=== PATIENT | female | born 1985 | race Caucasian/White ===

== ENCOUNTER 2018-02-07 06:00 | Inpatient (IN) | payer OTHER ==
[2018-02-07] MEDS ORDERED: LIDOCAINE 1% 300 MG/30 ML SDV SC PRN (06:33)
[2018-02-07] MEDS ORDERED: IBUPROFEN 600 MG TAB PO PRN (06:33)
[2018-02-07] MEDS ORDERED: OLIVE OIL 118 ML BTL MISC PRN (06:33)
[2018-02-07] MEDS ORDERED: TERBUTALINE SULFATE 1 MG/ML VIAL IV PRN (06:33)
[2018-02-07] MEDS ORDERED: EPSOM SALT 454 GM TP PRN (06:33)
[2018-02-07] MEDS ORDERED: AMPICILLIN SODIUM 2 GM in NS 100 ML IV ONE (06:33)
[2018-02-07] MEDS ORDERED: OXYTOCIN/RINGERS LACTATE 1,000 ML IV PRN (06:33)
[2018-02-07] MEDS ORDERED: MISOPROSTOL 200 MCG TAB PR PRN (06:33)
[2018-02-07 06:51] LABS: PLATELET COUNT 198 10^3/uL (150-400)
[2018-02-07] MEDS ORDERED: PENICILLIN POTASSIUM IV ONE (07:00)
[2018-02-07] MEDS ORDERED: OXYTOCIN/LR *STANDARD DOSE PROTOCOL IV SCH (07:00)
[2018-02-07] MEDS ORDERED: D5W IV ONE (07:00)
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
[2018-02-07] MEDS: LR 1,000 ML IV PRN ×2 (08:03→22:20)
[2018-02-07] MEDS ORDERED: LR 500 ML IV PRN (08:50)
[2018-02-07] MEDS ORDERED: AMPICILLIN SODIUM 1 GM in NS 100 ML IV SCH (10:30)
[2018-02-07] MEDS: D5W IV SCH ×3 (12:03→20:25)
[2018-02-07] MEDS: PENICILLIN POTASSIUM IV SCH ×3 (12:03→20:25)
[2018-02-07] MEDS ORDERED: AMMONIA AROMATIC 1 EACH AMP IH ONE (14:25)
[2018-02-07] MEDS ORDERED: OLIVE OIL 118 ML BTL ONE (14:25)
[2018-02-07] MEDS ORDERED: LIDOCAINE 1% 300 MG/30 ML SDV ONE (14:25)
[2018-02-07] MEDS ORDERED: TERBUTALINE SULFATE 1 MG/ML VIAL ONE (14:25)
[2018-02-07] MEDS ORDERED: OXYTOCIN 10 UNIT/ML VIAL ONE (14:26)
[2018-02-07] MEDS ORDERED: MISOPROSTOL 200 MCG TAB ONE (14:26)
[2018-02-07] MEDS ORDERED: fentaNYL 2MCG/ML/BUP 0.1% RTU 100 ML BAG EP ONE (17:17)
[2018-02-07] MEDS ORDERED: PHENYLEPHRINE HCL 100 MCG/ML SYR ONE (17:18)
[2018-02-07] MEDS ORDERED: BUPIVACAINE 0.25% 30 ML SDV ONE (17:18)
[2018-02-07] MEDS ORDERED: fentaNYL 100 MCG/2 ML INJ ONE (17:18)
[2018-02-07] MEDS ORDERED: ONDANSETRON 4 MG/2 ML VIAL IVP PRN (18:24)
--- NOTE | 2018-02-07 18:26 | POSTANESTH ---
Post Anesthetic Evaluation Cardiovascular Status: Normal, Stable, Similar to Pre-Op Cond Respiratory Status: Normal, Stable, Similar to Pre-op Cond. Level of Consciousness/Mental Status: Can Participate in Eval, Alert and Oriented Pain Control: Adequate, Prn Tx Ordered Nausea/Vomiting Control: Adequate, Prn Tx Ordered Complications Possibly Related to Anesthesia: None Noted
--- NOTE | 2018-02-07 18:29 | PREANESOB ---
Obstetric Pre-Anesthesia Info - General Info Proposed Procedure: Labor and delivery with pitocin. : 1 Para: 0 GEE: 02/01/18 Gestational Age: 40 week(s) and 6 day(s) - Info Status: Postmature Monitors: External FHR Baseline (bpm): 140 FHR Pattern: Reassuring - Labor Status Cervical Dilation per last OB SVE: 5 Pitocin: In Use Indications for Labor Analgesia: Induction of Labor, Pain Control Labor Epidural: Proposed Anesthesia ROS: [place] teeth. Allergies/Adverse Reactions: Allergy/AdvReac Type Severity Reaction Status Date / Time No Known Allergies Allergy Unverified 02/07/18 06:27 Home Medications: Medication Instructions Recorded Vit27&Calcium/Iron/FA 1 tab PO DAILY 02/07/18 [] Visit Medications: Generic Name Dose Route Start Last Admin Trade Name Freq PRN Reason Stop Dose Admin Diphenhydramine HCl 25 - 50 mg 02/07/18 18:24 Benadryl Injection IVP 08/06/18 18:23 Q6HRS PRN Itching Lactated Ringer's 1,000 mls @ 0 mls/hr 02/07/18 06:33 02/07/18 08:03 Lr IV 02/08/18 06:32 1,000 mls PRN PRN Administration SEE PROTOCOL CONDITIONS Protocol Per Protocol Oxytocin/Lactated Ringer's 1,000 mls @ 125 mls/hr 02/07/18 06:33 Pitocin 20 Units/Lr (Premix) IV PRN PRN Post bleeding Penicillin G Potassium 2,500, 105 mls @ 105 mls/hr 02/07/18 11:00 02/07/18 16 :21 000 unit/ Dextrose IV 03/09/18 10:59 105 mls Q4H MARYCARMEN Administration Oxytocin/Lactated Ringer's 500 mls @ 0 mls/hr 02/07/18 07:00 02/07/18 08:03 Pitocin 30 Units/Lr (Premix) IV 08/06/18 06:59 500 mls CONT MARYCARMEN Administration Protocol Per Protocol Lactated Ringer's 500 mls @ 500 mls/hr 02/07/18 08:50 Lr IV 02/08/18 08:50 PRN PRN Maternal Hypotension Fentanyl/Bupivacaine HCl 100 mls @ 0 mls/hr 02/07/18 18:30 Fentanyl/Bupivacaine/Ns 2 Mcg/Ml 0.1% (Premix EP 02/17/18 18:29 CONT MARYCARMEN Protocol As Directed Lactated Ringer's 500 mls @ 0 mls/hr 02/07/18 18:30 Lr IV 08/06/18 18:29 CONT MARYCARMEN As Directed Ibuprofen 600 mg 02/07/18 06:33 Motrin PO ONCE PRN post , pain Lidocaine HCl 300 mg 02/07/18 06:33 Lidocaine Hcl 1% SC 08/06/18 06:32 ONCE PRN episiotomy Magnesium Sulfate 454 gm 02/07/18 06:33 Epsom Salt TP 08/06/18 06:32 Q1H PRN perineal discomfort Misoprostol 800 - 1,000 mcg 02/07/18 06:33 Cytotec OR ONCE PRN Vaginal Atony/Bleeding [place] Oil 118 ml 02/07/18 06:33 Sweet Oil MISC 08/06/18 06:32 ONCE PRN perineal massage Ondansetron HCl 4 mg 02/07/18 18:24 Zofran IVP 02/08/18 18:23 Q4HRS PRN Nausea/Vomiting, Can't Take PO Phenylephrine HCl 100 mcg 02/07/18 18:24 Neosynephrine IVP 08/06/18 18:23 .Q2M PRN Hypotension Terbutaline Sulfate 0.25 mg 02/07/18 06:33 Brethine IV 08/06/18 06:32 ONCE PRN Tachysystole Discontinued Medications Generic Name Dose Route Start Last Admin Trade Name Freq PRN Reason Stop Dose Admin Ammonia (Aromatic Spirit) Confirm 02/07/18 14:25 Ammonia Aromatic Administered 02/07/18 14:26 Dose 1 each IH .STK-MED ONE Bupivacaine HCl Confirm 02/07/18 17:18 Sensorcaine 0.25% Sdv Administered 02/07/18 17:19 Dose 30 ml .ROUTE .STK-MED ONE Fentanyl Confirm 02/07/18 17:18 Sublimaze Administered 02/07/18 17:19 Dose 100 mcg .ROUTE .STK-MED ONE Fentanyl/Bupivacaine HCl Confirm 02/07/18 17:17 Fentanyl/Bupivacaine/Ns 2 Mcg/Ml 0.1% (Premix Administered 02/07/18 17:18 Dose 100 ml EP .STK-MED ONE Ampicillin Sodium 2 gm/ Sodium 110 mls @ 220 mls/hr 02/07/18 06:33 02/07/18 11:42 Chloride IV 02/07/18 07:02 Not Given ONCE ONE Protocol Ampicillin Sodium 1 gm/ Sodium 100 mls @ 200 mls/hr 02/07/18 10:30 Chloride IV 03/09/18 10:29 Q4H MARYCARMEN Protocol Penicillin G Potassium 5,000, 110 mls @ 110 mls/hr 02/07/18 07:00 02/07/18 08 :00 000 unit/ Dextrose IV 02/07/18 07:59 110 mls ONCE ONE Administration Lidocaine HCl Confirm 02/07/18 14:25 Lidocaine Hcl 1% Administered 02/07/18 14:26 Dose 300 mg .ROUTE .STK-MED ONE Misoprostol Confirm 02/07/18 14:26 Cytotec Administered 02/07/18 14:27 Dose 1,000 mcg .ROUTE .STK-MED ONE [place] Oil Confirm 02/07/18 14:25 Sweet Oil Administered 02/07/18 14:26 Dose 118 ml .ROUTE .STK-MED ONE Oxytocin Confirm 02/07/18 14:26 Pitocin Administered 02/07/18 14:27 Dose 40 unit .ROUTE .STK-MED ONE Phenylephrine HCl Confirm 02/07/18 17:18 Neosynephrine Administered 02/07/18 17:19 Dose 1,000 mcg .ROUTE .STK-MED ONE Terbutaline Sulfate Confirm 02/07/18 14:25 Brethine Administered 02/07/18 14:26 Dose 1 mg .ROUTE .STK-MED ONE - Anesthesia History Response to Local Anesthetics: Normal Anesthesia & Operative History: No Prior Problems Family Anesthesia History: Negative - Social History Substance Use/Abuse: Denies - Vital Signs Blood Pressure: 138/94 Heart Rate: 86 Height/Weight (Nursing): Height 162.56 cm Weight 76.657 kg - Focused Exam Neck exam: FROM Mallampati Score: Class 1 Mouth exam: normal dental/mouth exam Pulmonary: no respiratory distress Cardiovascular: regular rate and rhythym Labs: 02/07/18 06:37 02/07/18 16:25 Patient ABO/Rh A POSITIVE 02/07/18 06:37 Uric Acid 6.3 mg/dL (2.5-6.8) 02/07/18 16:25 Total Bilirubin 0.2 mg/dL (0.1-1.4) 02/07/18 16:25 Conjugated Bilirubin 0.1 mg/dL (0.0-0.5) 02/07/18 16:25 Unconjugated Bilirubin 0.1 mg/dL (0.0-1.1) 02/07/18 16:25 AST 30 IU/L (14-46) 02/07/18 16:25 ALT 35 IU/L (9-52) 02/07/18 16:25 Lactate Dehydrogenase 448 IU/L (313-618) 02/07/18 16:25 - Plan Anesthetic Plan: EMIGDIO Consent Signed and on Chart: Yes Patient/Guardian Understands and Agrees to Plan: Yes Urgent/Emergent Case: Desi paez completed preop but documented later for safe timely pt care
[2018-02-07] MEDS ORDERED: LR 500 ML IV SCH (18:30)
[2018-02-07] MEDS ORDERED: fentaNYL 2MCG/ML/BUP 0.1% RTU 100 ML EP SCH (18:30)
[2018-02-08] MEDS: D5W IV SCH ×2 (00:12→05:37)
[2018-02-08] MEDS: PENICILLIN POTASSIUM IV SCH ×2 (00:12→05:37)
[2018-02-08] MEDS: PHENYLEPHRINE HCL 100 MCG/ML SYR IVP PRN ×4 (05:32→07:34)
[2018-02-08] MEDS ORDERED: MAGNESIUM HYDROXIDE 30 ML UDCUP PO PRN (05:59)
[2018-02-08] MEDS ORDERED: LACTULOSE 20 GM/30 ML UDCUP PO PRN (05:59)
[2018-02-08] MEDS ORDERED: POLYETHYLENE GLYCOL 3350 17 GM PKT PO PRN (05:59)
[2018-02-08] MEDS ORDERED: BISACODYL 10 MG SUPP PR PRN (05:59)
[2018-02-08] MEDS ORDERED: oxyCODONE IR 5 MG TAB PO PRN (05:59)
--- NOTE | 2018-02-08 05:59 | OBDEL ---
Info Type: Vaginal Presentation at Delivery: Vertex (MEY, asynclitic) GBS+: Yes (PCN x many doses) Intrapartum Medications: Generic Name Dose Route Start Last Admin Trade Name Freedilson PRN Reason Stop Dose Admin Lactated Ringer's 1,000 mls @ 0 mls/hr 02/07/18 06:33 02/07/18 22:20 Lr IV 02/08/18 06:32 1,000 mls PRN PRN Administration SEE PROTOCOL CONDITIONS Protocol Per Protocol Penicillin G Potassium 2,500, 105 mls @ 105 mls/hr 02/07/18 11:00 02/08/18 05 :37 000 unit/ Dextrose IV 03/09/18 10:59 Not Given Q4H MARYCARMEN Oxytocin/Lactated Ringer's 500 mls @ 0 mls/hr 02/07/18 07:00 02/07/18 08:03 Pitocin 30 Units/Lr (Premix) IV 08/06/18 06:59 500 mls CONT MARYCARMEN Administration Protocol Per Protocol Fentanyl/Bupivacaine HCl 100 mls @ 0 mls/hr 02/07/18 18:30 02/08/18 01:03 Fentanyl/Bupivacaine/Ns 2 Mcg/Ml 0.1% (Premix EP 02/17/18 18:29 100 mls CONT MARYCARMEN Administration Protocol As Directed Ondansetron HCl 4 mg 02/07/18 18:24 02/07/18 22:55 Zofran IVP 02/08/18 18:23 4 mg Q4HRS PRN Administration Nausea/Vomiting, Can't Take PO Phenylephrine HCl 100 mcg 02/07/18 18:24 02/08/18 05:42 Neosynephrine IVP 08/06/18 18:23 100 mcg .Q2M PRN Administration Hypotension Discontinued Medications Generic Name Dose Route Start Last Admin Trade Name Freedilson PRN Reason Stop Dose Admin Ampicillin Sodium 2 gm/ Sodium 110 mls @ 220 mls/hr 02/07/18 06:33 02/07/18 11:42 Chloride IV 02/07/18 07:02 Not Given ONCE ONE Protocol Oxytocin/Lactated Ringer's 1,000 mls @ 125 mls/hr 02/07/18 06:33 02/08/18 05: 25 Pitocin 20 Units/Lr (Premix) IV 1,000 mls PRN PRN Administration Post bleeding Penicillin G Potassium 5,000, 110 mls @ 110 mls/hr 02/07/18 07:00 02/07/18 08 :00 000 unit/ Dextrose IV 02/07/18 07:59 110 mls ONCE ONE Administration Indications for Delivery: Postterm Favorable Cervix Vaginal Delivery - Delivery Provider Delivery Physician/CNM: Kam Deluna - Labor and Delivery Onset of Contractions Date: 02/07/18 Onset of Contractions Time: 09:00 Onset of Contractions Type: Augmented Rupture of Membranes Date: 02/07/18 Rupture of Membranes Time: 15:00 Rupture of Membranes Type: Artificial Amniotic Fluid Color: Clear Dilation Complete Date: 02/07/18 Dilation Complete Time: 22:00 Non-surgical Procedures: Amniotomy Laceration: 3rd Degree Repair: 3-0, Vicryl, Other (Specify) (Two figure of eight sutures of 0-vicryl reapproximating sphincter and perineal body bulk, then closed with 3-0 vicryl in layers) Vaginal Sponge Count Correct: Yes Vaginal Needle Count Correct: Yes Vaginal Sweep Performed: Yes EBL: 500cc Delivery Events: Post Hemorrhage Delivery Comment: See OVD forceps note. - Medications Labor Augmentation/Induction Methods Used: Pitocin Labor Augmentation/Induction Indication: Post Dates Assissted Delivery Assisted Delivery Type: Starr Forceps (Kaylen-Matty) Station: +3 (+3/5) Pulls (Total): 2 (2 pulls over 2 ctx's) Assisted Delivery Comment: Patient ultimately pushed for a little over 3 hours, bringing baby to +3/5 station in MEY position with mild caput, mildly assynclitic. Ctx's had spaced out requiring Pitocin at 32mu and mom ultimately very exhausted. Discussed indication for OVD due to maternal exhaustion, arrest of descent. RBA discussed and forceps recommended, verbal consent obtained. Between contractions pt positioned in low lithotomy, thomson catheter removed. Repeat SCE confirmed above position. Wilit-Matty forceps liberally lubricated and applied with ease. Then over 2 contractions with one pull per contraction, then head was brought to (excellent progress with each pull), at which point the blades were disarticulated and removed. Head delivered controlled, followed by body, left shoulder anterior. Baby cried vigorously immediately and placed on mom's chest. Delayed cord clamping for > 2 minutes then clamped/cut. Perineum inspected, found to have 3rd degree lac to and partially through the external anal sphincter, but not completely, and not down to the anorectal mucosa. The sphincter was first reapproximated with generous, substantial [id number] sutures at the superior and cephalad positions. This recreated excellent bulk of that muscle body. Additional interrupted deep sutures of 3-0 vicryl to close/support the more proximal rectovaginal septum, before then repairing the remaining second degree lac in traditional fashion with 3-0 vicryl. Slow ongoing bleeding throughout that repair amounted to EBL of 500cc, but never atony. Just IV Pitocin given. Bladder straight cath'd for 300cc at the conclusion of repair. Mom and baby doing well in room. Data GEE: 02/01/18 Gestational Age: 41 week(s) and 0 day(s) [place] Delivery Date: 02/08/18 Delivery Time: 05:04 Sex of : Male Score (1 Min): 8 Score (5 Min): 9 Shoulder Dystocia Time Head Delivered: 05:04 Time Body Delivered: 05:04 ICD10 Worksheet Patient Problems: Problems Problem Status Onset Forceps delivery Acute Positive GBS test Acute Post-dates Acute - ICD10 Problem Qualifiers (1) Forceps delivery (2) Post-dates Qualifiers: Post-term type: 40-42 weeks gestation Qualified Code(s): O48.0 - Post-term (3) Positive GBS test
--- NOTE | 2018-02-08 10:51 | OBPP ---
Progress Note Assessment/Plan: Assessment: s/p forcep-assisted vaginal delivery PPD # 0 - pt is stable Plan: Continue routine pp care Patient to rest, stay well hydrated Continue po meds as ordered 02/08/18 10:47 Subjective/ Course: 02/08/18 10:49 Pt seen and examined. She is very tired, but doing okay. She notes some dizziness when moving ana. from laying down to a sitting position. Denies any HAs or visual changes. Some mild cramping and soreness down below. Taking Motrin and Tylenol with relief. Mod lochia. She has only brought baby to breast once or twice. She is going to take a nap now. Objective: 02/07/18 06:37 02/07/18 16:25 Patient ABO/Rh A POSITIVE 02/07/18 06:37 Uric Acid 6.3 mg/dL (2.5-6.8) 02/07/18 16:25 Total Bilirubin 0.2 mg/dL (0.1-1.4) 02/07/18 16:25 Conjugated Bilirubin 0.1 mg/dL (0.0-0.5) 02/07/18 16:25 Unconjugated Bilirubin 0.1 mg/dL (0.0-1.1) 02/07/18 16:25 AST 30 IU/L (14-46) 02/07/18 16:25 ALT 35 IU/L (9-52) 02/07/18 16:25 Lactate Dehydrogenase 448 IU/L (313-618) 02/07/18 16:25 Temp Pulse Resp BP Pulse Ox 36.6 C 118 H 18 127/69 H 100 02/08/18 06:23 02/08/18 06:23 02/08/18 06:23 02/08/18 06:23 02/08/18 06:23 Uterine Position/Fundal Height: Umbilicus -1 Uterine Tone: Firm Physical Exam - Physical Exam General Appearance: WD/WN, alert, no apparent distress Respiratory: lungs clear, normal breath sounds Cardiac/Chest: regular rate, rhythm Abdomen: normal bowel sounds, non-tender, soft Extremities: non-tender, normal inspection Skin: normal color, warm/dry Neuro/Psych: alert, normal mood/affect, oriented x 3
[2018-02-08] MEDS: ACETAMINOPHEN 325 MG TAB PO SCH ×4 (12:06→23:57)
[2018-02-08] MEDS: IBUPROFEN 600 MG TAB PO SCH ×3 (12:06→23:57)
[2018-02-08] MEDS: SENNOSIDES/DOCUSATE SODIUM TAB PO SCH (23:57)
[2018-02-09] MEDS: IBUPROFEN 600 MG TAB PO SCH ×3 (06:14→18:32)
[2018-02-09] MEDS: ACETAMINOPHEN 325 MG TAB PO SCH ×3 (06:14→18:31)
--- NOTE | 2018-02-09 09:52 | OBPP ---
Progress Note Assessment/Plan: Assessment/ Plan: 32 PPD#1 s/p forceps assisted vag delivery - doing well. Anemic but currently asymptomatic. Will start iron, encourage hydration and monitor closely. Mild tachycardia likely related to anemia. RAMOS -unsure if related to anemia - will see if Tylenol and ibuprofen help to resolve RAMOS Continue routine pp cares. Jenifer Rich MD, FACOG [facility] 02/09/18 13:12 Subjective/ Course: 02/08/18 10:49 Pt seen and examined. She is very tired, but doing okay. She notes some dizziness when moving ana. from laying down to a sitting position. Denies any HAs or visual changes. Some mild cramping and soreness down below. Taking Motrin and Tylenol with relief. Mod lochia. She has only brought baby to breast once or twice. She is going to take a nap now. 02/09/18 13:14 Pt doing well. Feels great. Moderate lochia. Ambulating and voiding without difficulty - denies any dizziness today. Woke up with a mild RAMOS today. going well so far. Objective: 02/09/18 05:25 02/07/18 16:25 Patient ABO/Rh A POSITIVE 02/07/18 06:37 Uric Acid 6.3 mg/dL (2.5-6.8) 02/07/18 16:25 Total Bilirubin 0.2 mg/dL (0.1-1.4) 02/07/18 16:25 Conjugated Bilirubin 0.1 mg/dL (0.0-0.5) 02/07/18 16:25 Unconjugated Bilirubin 0.1 mg/dL (0.0-1.1) 02/07/18 16:25 AST 30 IU/L (14-46) 02/07/18 16:25 ALT 35 IU/L (9-52) 02/07/18 16:25 Lactate Dehydrogenase 448 IU/L (313-618) 02/07/18 16:25 Temp Pulse Resp BP Pulse Ox 36.6 C 110 H 18 128/74 H 97 02/08/18 20:00 02/08/18 20:00 02/08/18 20:00 02/08/18 20:00 02/08/18 20:00 gen - pleasant, NAD CV - reg rhythm with mild tachycardia chest - CTAB abd - soft, + BS, fundus firm at u-3, NT ext - 1 + pitting edema, calves NT perineum - repair intact and minimal edema Uterine Position/Fundal Height: Umbilicus -3 Uterine Tone: Firm
[2018-02-09] MEDS: PRENATAL VIT 1 EACH TAB PO SCH ×2 (11:20→13:16)
[2018-02-09] MEDS: SENNOSIDES/DOCUSATE SODIUM TAB PO SCH ×2 (11:20→13:16)
[2018-02-09] MEDS: FERROUS SULFATE 140 MG TAB.ER PO SCH (14:26)
[2018-02-10] MEDS: ACETAMINOPHEN 325 MG TAB PO SCH ×4 (00:27→20:13)
[2018-02-10] MEDS: IBUPROFEN 600 MG TAB PO SCH ×4 (00:27→20:13)
[2018-02-10] MEDS: SENNOSIDES/DOCUSATE SODIUM TAB PO SCH ×2 (00:28→13:01)
--- NOTE | 2018-02-10 09:29 | OBPP ---
Progress Note Assessment/Plan: Assessment: 1) s/p forcep-assisted vaginal delivery PPD # 2 - pt is stable 2) Anemia - pt is symptomatic with dizziness and tachycardia Plan: Discussed blood transfusion with pt secondary to now having symptoms Consents obtained; discussed R/B/A with pt; she agrees to transfusion at this time Will check Hct 6 hours after transfusion Possible d/c home this evening, to see how patient is feeling 02/10/18 09:32 Subjective/ Course: 02/08/18 10:49 Pt seen and examined. She is very tired, but doing okay. She notes some dizziness when moving ana. from laying down to a sitting position. Denies any HAs or visual changes. Some mild cramping and soreness down below. Taking Motrin and Tylenol with relief. Mod lochia. She has only brought baby to breast once or twice. She is going to take a nap now. 02/09/18 13:14 Pt doing well. Feels great. Moderate lochia. Ambulating and voiding without difficulty - denies any dizziness today. Woke up with a mild RAMOS today. going well so far. 02/10/18 09:29 Pt seen and examined. She states she is dizzy ana. when changing positions from laying down to sitting to standing. RAMOS is better this am. She also states "her heart is beating fast." Denies any CP or SOB. Mild cramping and soreness down below, but relief with Tylenol and Motrin. Mod lochua- less today. She is OOB, anh regular diet, voiding and passing flatus. No BM yet. BF well without difficulty. They did want to go home today and hopeful if she feels better after transfusion to go home later this evening. Objective: 02/09/18 05:25 02/07/18 16:25 Patient ABO/Rh A POSITIVE 02/07/18 06:37 Uric Acid 6.3 mg/dL (2.5-6.8) 02/07/18 16:25 Total Bilirubin 0.2 mg/dL (0.1-1.4) 02/07/18 16:25 Conjugated Bilirubin 0.1 mg/dL (0.0-0.5) 02/07/18 16:25 Unconjugated Bilirubin 0.1 mg/dL (0.0-1.1) 02/07/18 16:25 AST 30 IU/L (14-46) 02/07/18 16:25 ALT 35 IU/L (9-52) 02/07/18 16:25 Lactate Dehydrogenase 448 IU/L (313-618) 02/07/18 16:25 Temp Pulse Resp BP Pulse Ox 36.4 C 106 H 17 134/79 H 97 02/10/18 08:00 02/10/18 08:00 02/10/18 08:00 02/10/18 08:00 02/10/18 08:00 Uterine Position/Fundal Height: Umbilicus -2 Uterine Tone: Firm Physical Exam - Physical Exam General Appearance: alert, no apparent distress, mild distress Respiratory: lungs clear, normal breath sounds Cardiac/Chest: regular rate, rhythm Abdomen: normal bowel sounds, non-tender, soft, flatus (+) Extremities: non-tender, normal inspection Skin: normal color, warm/dry Neuro/Psych: alert, normal mood/affect, oriented x 3
[2018-02-10] MEDS: FERROUS SULFATE 140 MG TAB.ER PO SCH (13:01)
[2018-02-10] MEDS: PRENATAL VIT 1 EACH TAB PO SCH (13:05)
[2018-02-11] MEDS: ACETAMINOPHEN 325 MG TAB PO SCH ×3 (03:13→15:11)
[2018-02-11] MEDS: IBUPROFEN 600 MG TAB PO SCH ×3 (03:14→15:11)
[2018-02-11] MEDS: SENNOSIDES/DOCUSATE SODIUM TAB PO SCH ×2 (06:48→09:08)
[2018-02-11] MEDS: FERROUS SULFATE 140 MG TAB.ER PO SCH (09:08)
[2018-02-11] MEDS: PRENATAL VIT 1 EACH TAB PO SCH (09:08)
[2018-02-11 09:18] VITALS: BP 136/82
--- NOTE | 2018-02-11 10:40 | OBPP ---
Progress Note Assessment/Plan: Assessment: 32 y/o PPD #3 s/p forceps assisted vaginal delivery with PP hemorrhage s/p 2 units PRBC much better. Plan: Hct is stable now and she feels so much better. She is ready to d/c home with Ibuprofen and Iron BID. 02/11/18 10:40 Subjective/ Course: 02/08/18 10:49 Pt seen and examined. She is very tired, but doing okay. She notes some dizziness when moving ana. from laying down to a sitting position. Denies any HAs or visual changes. Some mild cramping and soreness down below. Taking Motrin and Tylenol with relief. Mod lochia. She has only brought baby to breast once or twice. She is going to take a nap now. 02/09/18 13:14 Pt doing well. Feels great. Moderate lochia. Ambulating and voiding without difficulty - denies any dizziness today. Woke up with a mild RAMOS today. going well so far. 02/10/18 09:29 Pt seen and examined. She states she is dizzy ana. when changing positions from laying down to sitting to standing. RAMOS is better this am. She also states "her heart is beating fast." Denies any CP or SOB. Mild cramping and soreness down below, but relief with Tylenol and Motrin. Mod lochua- less today. She is OOB, anh regular diet, voiding and passing flatus. No BM yet. BF well without difficulty. They did want to go home today and hopeful if she feels better after transfusion to go home later this evening. 02/11/18 10:30 Pt feels so much better this am. She says her RAMOS, dizziness and weakness have resolved. She denies palpitations or SOB. They are working on breast feeding and her milk is starting to come in. Latching is getting better. They feels much more comfortable going home. Objective: 02/10/18 23:50 02/07/18 16:25 Patient ABO/Rh A POSITIVE 02/07/18 06:37 Uric Acid 6.3 mg/dL (2.5-6.8) 02/07/18 16:25 Total Bilirubin 0.2 mg/dL (0.1-1.4) 02/07/18 16:25 Conjugated Bilirubin 0.1 mg/dL (0.0-0.5) 02/07/18 16:25 Unconjugated Bilirubin 0.1 mg/dL (0.0-1.1) 02/07/18 16:25 AST 30 IU/L (14-46) 02/07/18 16:25 ALT 35 IU/L (9-52) 02/07/18 16:25 Lactate Dehydrogenase 448 IU/L (313-618) 02/07/18 16:25 Temp Pulse Resp BP Pulse Ox 36.2 C 109 H 18 136/82 H 97 02/11/18 08:00 02/11/18 08:00 02/11/18 08:00 02/11/18 08:00 02/11/18 08:00 Uterine Position/Fundal Height: Umbilicus -2 Uterine Tone: Firm Physical Exam - Physical Exam General Appearance: alert, no apparent distress Neck: non-tender, full range of motion, supple Respiratory: chest non-tender, lungs clear, normal breath sounds Cardiac/Chest: regular rate, rhythm Abdomen: normal bowel sounds Extremities: swelling (tr), Lanette's sign (neg)
--- NOTE | 2018-02-11 11:09 | OBGCSDC ---
General Delivery Information - General Info : 1 Para: 1 Abortions: 0 Type: Vaginal L&D Analgesia/Anesthesia Type: Epidural Admission Date: 02/07/18 Labs: Patient ABO/Rh A POSITIVE 02/07/18 06:37 Hct 29.4 % (38.0-47.0) L 02/10/18 23:50 - Hospital Course : 02/08/18 10:49 Pt seen and examined. She is very tired, but doing okay. She notes some dizziness when moving ana. from laying down to a sitting position. Denies any HAs or visual changes. Some mild cramping and soreness down below. Taking Motrin and Tylenol with relief. Mod lochia. She has only brought baby to breast once or twice. She is going to take a nap now. 02/09/18 13:14 Pt doing well. Feels great. Moderate lochia. Ambulating and voiding without difficulty - denies any dizziness today. Woke up with a mild RAMOS today. going well so far. 02/10/18 09:29 Pt seen and examined. She states she is dizzy ana. when changing positions from laying down to sitting to standing. RAMOS is better this am. She also states "her heart is beating fast." Denies any CP or SOB. Mild cramping and soreness down below, but relief with Tylenol and Motrin. Mod lochua- less today. She is OOB, anh regular diet, voiding and passing flatus. No BM yet. BF well without difficulty. They did want to go home today and hopeful if she feels better after transfusion to go home later this evening. 02/11/18 10:30 Pt feels so much better this am. She says her RAMOS, dizziness and weakness have resolved. She denies palpitations or SOB. They are working on breast feeding and her milk is starting to come in. Latching is getting better. They feels much more comfortable going home. Vaginal - Delivery Provider Delivery Physician/CNM: Kam Deluna - Diagnosis Labor: Augmented Rupture of Membranes Type: Artificial Amniotic Fluid Color: Clear Laceration: 3rd Degree Repair: 3-0, Vicryl, Other (Specify) (Two figure of eight sutures of 0-vicryl reapproximating sphincter and perineal body bulk, then closed with 3-0 vicryl in layers) Delivery Events: Post Hemorrhage - Procedures Assisted Delivery Type: Starr Forceps (Seth) Non-surgical Procedures: Amniotomy - Delivery Non-surgical Procedures: Amniotomy EBL: 500cc Eldridge Data GEE: 02/01/18 Gestational Age: 41 week(s) and 3 day(s) [place] Delivery Date: 02/08/18 Delivery Time: 05:04 Sex of : Male Weight (gm): 3586 g Score (1 Min): 8 Score (5 Min): 9 Discharge Information - Discharge Information Prescriptions: Ferrous Sulfate [Slow Fe 140 MG (*)] 140 mg PO DAILY #60 tab.er Ibuprofen [Motrin (*)] 600 mg PO Q6H #30 tab Condition: Good Instruction/Follow Up: Two Weeks, Four Weeks, Six Weeks (Pt received a post blood transfusion, now stable )
== END 2018-02-11 15:12 | disposition home or self-care (01) | DRG 774 ==
LOC: FLD 06:10 → FOB 02-08 10:15
PROVIDERS: ADMIT Hospitalist; ATTEND Hospitalist
PROC: 0DQR0ZZ Repair Anal Sphincter, Open Approach (ICD-10-PCS; principal; 2018-02-08)
PROC: 10D07Z3 Extraction of Products of Conception, Low Forceps, Via Natural or Artificial Opening (ICD-10-PCS; principal; 2018-02-08)
PROC: 10907ZC Drainage of Amniotic Fluid, Therapeutic from Products of Conception, Via Natural or Artificial Opening (ICD-10-PCS; principal; 2018-02-08)
PROC: 3E033VJ Introduction of Other Hormone into Peripheral Vein, Percutaneous Approach (ICD-10-PCS; principal; 2018-02-08)
DX: O62.1 Secondary uterine inertia (principal); O70.20 Third degree perineal laceration during delivery, unspecified; O72.1 Other immediate postpartum hemorrhage; O48.0 Post-term pregnancy; Z37.0 Single live birth; Z3A.40 40 weeks gestation of pregnancy; O75.81 Maternal exhaustion complicating labor and delivery; O99.03 Anemia complicating the puerperium; D64.9 Anemia, unspecified; Z23 Encounter for immunization
CPT/HCPCS: G0008; J2370; J2405; J2540; J2590; J3010; J3105; P9016